=== PATIENT | female | born 1975 | race Caucasian/White ===

== ENCOUNTER 2018-09-05 12:30 | Inpatient (IN) | payer OTHER ==
[2018-09-09] MEDS ORDERED: ceFAZolin 2 GM/50 ML 2 GM/50 ML BAG IV ONE (06:30)
[2018-09-09] MEDS ORDERED: LACTATED RINGERS 1,000 ML IV ONE ×2 (06:38→09:46)
--- NOTE | 2018-09-09 07:18 | ANESTHESIA ---
Pre-Anesthesia VS, & Labs - Diagnosis pelvic pain, abnormal bleeding - Procedure LAVH bilat salpingectomies Vital Signs: Temp Pulse Resp BP Pulse Ox 36.7 C 73 16 117/40 L 100 09/09/18 06:42 09/09/18 06:42 09/09/18 06:42 09/09/18 06:42 09/09/18 06:42 Height 5 ft 7 in Weight (kg) 61.9 kg - NPO >8 hours - Is Patient ?: No Home Medications and Allergies Home Medications: Ambulatory Orders Multivitamin [One Daily Multivitamin] 1 each PO DAILY 08/28/18 Turmeric Root Extract [Turmeric Curcumin] 500 mg PO DAILY 08/28/18 RX: Olopatadine HCl 5 ml OP BID 09/09/18 Multivitamin [One Daily Multivitamin] 1 each PO DAILY 08/28/18 Turmeric Root Extract [Turmeric Curcumin] 500 mg PO DAILY 08/28/18 Olopatadine HCl 5 ml OP BID 09/09/18 Allergies/Adverse Reactions: Allergies Allergy/AdvReac Type Severity Reaction Status Date / Time Penicillins Allergy Hives Verified 09/09/18 07:09 Anes History & Medical History - Anesthetic History Anesthesia Complications: reports: No previous complications Family history of Anesthesia Complications: Denies Family history of Malignant Hyperthermia: Denies - Medical History Cardiovascular: reports: None Pulmonary: reports: None Urinary: reports: Other Musculoskeletal: reports: None Endocrine/Autoimmune: reports: None Skin: reports: None - Surgical History Gynecologic: section Exam General: Alert, Oriented x3, Cooperative Dental: WNL, Other (invisilign base @8,9) Mouth Openin Fingerbreadth Neck Mobility: Normal Mallampati classification: III Thyromental Distance: 4-6 cm Respiratory: Lungs clear, Normal breath sounds, No respiratory distress Cardiovascular: Regular rate Mental/Cognitive Status: Alert/Oriented X3 Cognitive Status: Within normal limits Plan Anesthesia Type: General Consent for Procedure(s) Verified and Reviewed: Yes Code Status: Attempt Resuscitation ASA classification: 1-Healthy patient Is this case an emergency?: No
[2018-09-09 07:31] LABS: HCG UR QUAL NEGATIVE
[2018-09-09] MEDS ORDERED: LIDOCAINE 1%-EPI 1:100000 30 ML MDV ONE (07:32)
[2018-09-09] MEDS ORDERED: BUPIVACAINE 0.25% PF 10 ML VIAL ONE (07:33)
[2018-09-09] MEDS ORDERED: BUPIVACAINE 0.25% PF 30 ML VIAL SUBQ ONE (08:09)
[2018-09-09] MEDS ORDERED: LIDOCAINE MPF 1%-EPI 1:200000 30 ML VIAL SUBQ ONE (08:10)
[2018-09-09] MEDS ORDERED: METHYLENE BLUE 0.5% 50 MG/10 ML AMPULE ONE (09:38)
[2018-09-09] MEDS ORDERED: NEOSTIGMINE 1 MG/1 ML 10 ML MDV IVP ONE (10:59)
[2018-09-09] MEDS ORDERED: ONDANSETRON 4 MG/2 ML VIAL IVP ONE (10:59)
[2018-09-09] MEDS ORDERED: ACETAMINOPHEN 1,000 MG/100 ML 100 ML IV ONE (10:59)
[2018-09-09] MEDS ORDERED: fentaNYL 250 MCG/5 ML VIAL IVP ONE (10:59)
[2018-09-09] MEDS ORDERED: MIDAZOLAM 2 MG/2 ML VIAL IVP ONE (10:59)
[2018-09-09] MEDS ORDERED: PROPOFOL 200 MG/20 ML VIAL IVP ONE (10:59)
[2018-09-09] MEDS ORDERED: GLYCOPYRROLATE 1 MG/5 ML VIAL IVP ONE (10:59)
[2018-09-09] MEDS ORDERED: DEXAMETHASONE 4 MG/ML VIAL IVP ONE (10:59)
[2018-09-09] MEDS ORDERED: ROCURONIUM 50 MG/5 ML VIAL IVP ONE ×2 (10:59→14:15)
[2018-09-09] MEDS ORDERED: ACETAMINOPHEN 500 MG TABLET PO PRN (11:07)
[2018-09-09] MEDS ORDERED: SIMETHICONE CHEW 80 MG TABLET PO PRN (11:07)
[2018-09-09] MEDS ORDERED: MORPHINE 10 MG/ML VIAL IVP PRN (11:07)
[2018-09-09] MEDS ORDERED: ONDANSETRON 4 MG/2 ML VIAL IVP PRN (11:07)
[2018-09-09] MEDS ORDERED: fentaNYL 100 MCG/2 ML VIAL ONE (11:15)
[2018-09-09] MEDS: HYDROmorphone 0.5 MG/0.5 ML SYRINGE ONE ×2 (11:20→11:27)
--- NOTE | 2018-09-09 11:34 | OPERATIVE REPORT ---
Operative Report - General Admit Date: 09/09/18 Procedure Date: 09/09/18 Planned Procedure: Laparoscopic-assisted vaginal hysterectomy with bilateral salpingectomy Pre-Op Diagnosis: Abnormal uterine bleeding, severe dysmenorrhea Procedure Performed: Laparoscopic-assisted vaginal hysterectomy with bilateral salpingectomy, diagnostic cystoscopy Post Op Diagnosis: BRAXTON, pelvic adhesions c/w possible history pelvic inflammatory disease - Procedure Note Primary Surgeon: Dr. Delia Lujan Secondary Surgeon: Dr. Neville Marinelli Anesthesia Provider: CHUCK Zhou Anesthesia Technique: General ET tube Pathology: Uterus, cervix, and bilateral fallopian tubes IV Fluids (mL): 1,700 Estimated Blood Loss (mL): 150 Urine Output (mL): 300 Indications: The patient is a 43-year-old 2 para 2 female here for hysterectomy for definitive surgical management of long-standing abnormal uterine bleeding and severe dysmenorrhea. She has a 10-year history of heavy, painful menses, which have progressively worsened since age 31 years. Her menses last for 5-7 days, of which the first 2 days are extremely heavy, requiring super tampon and pad changes sometimes up to every 30 minutes. She not uncommonly soaks through clothing in the first 2 days. She has a prodrome, which consist of fatigue, depressed mood, and severe cramps. This is accompanied by backache and constipation, which starts between 5-7 days prior to the onset of bleeding. She then has diarrhea upon the onset of menses. Ibuprofen only partly relieves the pain, and she has not noted any significant difference in menstrual flow when she takes ibuprofen. She has taken oral contraceptives and used a progestin IUD in the past, both of which cause mood changes and severe water-weight gain, which then resolved when they were discontinued. The couple has completed her childbearing and are using vasectomy for control. After reviewing all medical and surgical options, the patient desires to proceed with a hysterectomy. The risks, benefits, limitations, alternatives, and expectations were discussed, and the consent was reviewed and signed prior to the date of marcum rgery. Findings: Exam under anesthesia noted a 7-week size uterus that was anteverted. There were no adnexal masses palpable. Laparoscopic findings noted filmy adhesions of the left ovary and fallopian tube into the posterior cul-de-sac and posterior left side of the uterus. There were benign-appearing paratubal cyst on the right side. There were no endometriosis lesions. The ascending colon was adhered to the left flank peritoneum with filmy adhesions. These adhesions were left in situ. The appendix is visualized and appeared normal. The liver edge was visualized and appeared normal. The ovaries appeared normal bilaterally. Laparoscopically, the ureters were visualized bilaterally and noted to peristalse bilaterally. Diagnostic cystoscopy noted reflux of methylene-stained urine readily from the right ureteral orifice. The left ureteral orifice peristalsed multiple times during the cystoscopy, and a slow drainage of urine was noted at one point. However, no clear jet of methylene-dyed urine was noted from the left ureteral orifice. Repeat cystoscopy at the very end of the case again noted the same findings. Complications: None; though left ureteral obstruction could not be fully ruled out cystoscopically, the left ureter did peristalse laparoscopically; and there was no spillage of methylene blue intra-abdominally to suggest transection injury. - Other Other Information/Narrative: Procedure: The patient was taken to the operating room, where general endotracheal anesthesia was administered without difficulty. She was then positioned with her lower extremities in yellow-fin stirrups. Exam under anesthesia was then performed with the findings as noted above. Perineum, vagina, and abdomen were then prepped and draped in sterile fashion, and a hughes catheter was placed. Time out was then performed. Attention was first turned to placement of a uterine manipulator. A sterile bivalve speculum was inserted, and the cervix grasped with a single-toothed tenaculum. The cervix was then dilated until a HUMI uterine manipulator could be placed and balloon inflated. The tenaculum and speculum were then removed. Attention was then turned to the laparoscopy. 0.25% Marcaine, plain, was injected infraumbilically, then a 7-mm vertical skin incision made. A Verrees needle was then inserted through the anterior layers of the abdominal wall with saline drop test suggesting intraperitoneal placement. Carbon dioxide gas insufflation was then performed with appropriate opening pressures noted. Once 2 L of gas was instilled, a 0-degree, 5 mm laparoscope was inserted into a 5 mm trocar and passed through the anterior layers of the abdominal wall using Op tiview technique. The abdomen was visualized, then 2 additional ports placed at the right and left lower quadrants, first instilling local anesthetic then placing 5 mm ports. The patient was placed into Trendelenberg and bowel swept out of the cul-de-sac. The left ovary and tube were adhered into the left posterior uterus and cul-de-sac but easily and pulled superiorly and laterally. The left distal fallopian tube was grasped and pulled anteriorly while the left tubo- ovarian ligament was cross-clamped, cauterized, and cut using the PlasmaKinetic. This incision was then extended medially across the mesosalpinx until the cornual region was reached. The left round ligament was then cross-clamped, cauterized, and cut, then the anterior leaf of the broad ligament undermined, c auterized, and cut starting the bladder flap dissection on the left. The left utero-ovarian pedicle was then cross-clamped, cauterized, and cut, then this incision extended into the peritoneum inferiorly. The left uterine vessels were then skeletonized, cross-clamped, cauterized, and cut. Attention was then turned to the right side, where the dissection was completed in similar fashion. The bladder flap was extended across the midline, completely dissecting the bladder inferiorly. Mild bladder adhesions were noted secondary to her prior c- section. Any bleeding was controlled with cautery. The trocars were left in situ, as well as the majority of the gas, while attention was turned to the vaginal portion of the case. The lower extremities were elevated to high lithotomy, and the uterine manipulator was removed and a sterile weighted speculum placed. The cervix was grasped with a double-toothed tenaculum, then 1% Lidocaine with epinephrine was injected circumferentially for hemostasis. A circumferential incision was then made with cauterization. The posterior cul-de-sac was then entered sharply, and an Auvard speculum placed. At this point, it was reported that the urine appeared pink. This then later cleared, but the decision was made to perform a diagnostic cystoscopy prior to completion of the case. The left, then right, uterosacral ligament was cross-clamped, cut, and suture-ligated with 0 vicryl. These were tagged for later identification. The anterior cul-de-sac was then entered bluntly using a moist sponge and the longwall headgate operator's finger. Two additional pedicles were secured on each side, then the uterus, cervix, and tubes removed vaginally. The peritoneum was then closed with a purse-string suture of 0 vicryl, then the vaginal cuff was irrigated with sterile saline. The vaginal mucosa was then closed with serial figure of eight sutures of 0 vicryl. A sponge stick was placed, and attention turned to a diagnostic cystoscopy. The Hughes catheter balloon was deflated, then the Hughes removed briefly. A 70- degree cystoscope was inserted into the urethra and bladder. There were some non-adhered clots, and the right urteral orifice effluxed methylene-stained urine readily. The left ureteral orifice peristalsed multiple times, and a slow drainage of yellow urine was noted once. Lasix 10 mg IV was given to help with drainage of urine from the left, but this did not result in a ureteral jet on the left. The Hughes was replaced, and the plan was to reattempt cystoscopy later, allowing more time for the methylene dye and Lasix to work. Attention was then returned to laparoscopy to visualize the cuff for bleeding. The lower extremities were replaced into low lithotomy. Gas was instilled again, and the dissection site noted to have some bleeding at the peritoneal edge just above the cuff. This was cauterized then hemostatic. Copious irrigation was performed. The ureters were visualized and peristalsed BILATERALLY, and there was not spillage of methylene dye into the abdominal cavity. At this point the laparoscopic procedure was deemed complete. The gas was allowed to escape, and the trocars removed. The incisions were then closed with 4-0 monocryl in a subcuticular fashion followed by Dermabond. Cystoscopy was again performed, and the findings unchanged. The Hughes catheter was again replaced, then the sponge stick was removed from the vagina. The patient was then replaced supine, awakened, extubated, and transferred to the PACU in stable condition. There were no complications. Though left ureteral obstruction could not be completely ruled out via cystoscopy, there was peristalsis noted bilaterally and no clear evidence of ureteral injury laparoscopically. Sponge, lap, and needle count were correct x 3.
[2018-09-09] MEDS: LACTATED RINGERS 1,000 ML IV SCH ×2 (12:21→22:41)
[2018-09-09] MEDS: KETOROLAC 30 MG/ML VIAL IVP SCH ×3 (12:21→23:48)
[2018-09-09] MEDS ORDERED: SODIUM CHLORIDE FLUSH 0.9% 10 ML SYRINGE ONE ×3 (12:25→17:42)
[2018-09-09] MEDS ORDERED: FUROSEMIDE 40 MG/4 ML VIAL ONE (14:15)
[2018-09-09] MEDS: oxyCODONE 5 MG TABLET PO PRN ×2 (17:42→21:46)
[2018-09-09] MEDS: DOCUSATE SODIUM 100 MG CAPSULE PO SCH (20:15)
[2018-09-10] MEDS: oxyCODONE 5 MG TABLET PO PRN ×4 (02:08→14:54)
[2018-09-10] MEDS: KETOROLAC 30 MG/ML VIAL IVP SCH (05:41)
[2018-09-10 05:50] LABS: BASOPHILS % (AUTO) 0.2 %; EOSINOPHILS % (AUTO) 0.4 %; LYMPHOCYTES # (AUTO) 1.8 10^3/uL (1.5-3.5); LYMPHOCYTES % (AUTO) 24.6 %; MEAN CORPUSCULAR HGB CONC 32.9 g/dL (32.0-36.0); MEAN PLATELET VOLUME 11.2 fL (7.9-10.8); MONOCYTES # (AUTO) 0.6 10^3/uL (0.0-1.0); MONOCYTES % (AUTO) 8.3 %; NEUTROPHILS # (AUTO) 4.7 10^3/uL (1.5-6.6); NEUTROPHILS % (AUTO) 66.5 %; PLT - PLATELET COUNT 78 10^3/uL (130-450); RED BLOOD COUNT 3.22 10^6/uL (4.20-5.40); RED CELL DISTRIBUTION WIDTH 14.4 % (12.0-15.0); WHITE BLOOD COUNT 7.1 x10^3/uL (4.8-10.8)
[2018-09-10 05:52] LABS: CREATININE 0.6 mg/dL (0.4-1.0)
[2018-09-10] MEDS ORDERED: IOVERSOL 320 100 ML VIAL IVP ONE ×2 (06:53→11:19)
--- NOTE | 2018-09-10 08:27 | CT Report ---
Reason: Possible operative L ureteral obstruction Procedure Date: 09/10/2018 Accession Number: [id number] / [id number] Procedure: CT - IVP CPT Code: FULL RESULT: EXAM: CT ABDOMEN AND PELVIS WITHOUT AND WITH CONTRAST (CT IVP) EXAM DATE: 09/10/2018 07:08 AM. CLINICAL HISTORY: Possible operative L ureteral obstruction or injury. No left ureteral jet on cystoscopy. COMPARISONS: None. TECHNIQUE: Routine helical imaging was performed through the kidneys, ureters and bladder in the precontrast, postcontrast/delayed, and late delayed phase. IV Contrast: OPTIRAY 320 100ML. Reconstructions: Coronal and sagittal. In accordance with CT protocol optimization, one or more of the following dose reduction techniques were utilized for this exam: automated exposure control, adjustment of mA and/or KV based on patient size, or use of iterative reconstructive technique. FINDINGS: Lung Bases: There is minimal dependent atelectasis at the bilateral lung bases. Liver: Unremarkable. Gallbladder/Bile Ducts: Unremarkable. Spleen: Unremarkable. Pancreas: Unremarkable. Adrenal Glands: Unremarkable. Kidneys/Bladder: Right Kidney/Ureter: No renal or ureteral stones. No hydronephrosis or hydroureter. No masses. Left Kidney/Ureter: No renal or ureteral stones. No hydronephrosis or hydroureter. The distal left ureter is not well opacified on the postcontrast/delayed or late delayed phases. No masses. Bladder: No stones. No wall thickening or mass. Peritoneal Cavity/Bowel: No adenopathy. No masses or acute inflammatory process. No bowel obstruction or abnormal colonic stool burden. There is a small amount of free air in the abdomen anterior to the liver (series 6 image 16). There is a small amount of free fluid and gas in the pelvis, consistent with the patient's history of recent laparoscopic hysterectomy. Pelvic Organs: There are postsurgical changes of recent laparoscopic hysterectomy. There is a small amount of gas and free fluid low in the pelvis posterior to the bladder. There is no evidence of contrast leak from the urinary collecting system. There are 2 calcified phleboliths low in the pelvis. Vasculature: No aneurysms or other significant abnormality. Bones: No significant abnormality. Other: There are a few small foci of gas in the anterior abdominal wall, likely related to recent laparoscopic surgery. IMPRESSION: 1. No urinary tract masses, stones or obstruction. No evidence of contrast leak from the urinary collecting system on postcontrast/delayed or late delayed images. 2. Postsurgical changes consistent with recent prior laparoscopic hysterectomy. There is a small amount of fluid and gas in the pelvis, and a small amount of pneumoperitoneum anterior to the liver. RADIA
[2018-09-10] MEDS: DOCUSATE SODIUM 100 MG CAPSULE PO SCH (09:00)
[2018-09-10 12:59] VITALS: BP 97/52
--- NOTE | 2018-09-10 15:23 | DISCHARGE SUMMARY ---
"Discharge Summary Admit Date: 09/09/18 Discharge Date: 09/10/18 Discharging Provider: Dr. Delia Lujan Code Status: Attempt Resuscitation Condition at Discharge: Good Discharge Disposition: 01 Home, Self Care - DIAGNOSES Admission Diagnoses: Abnormal uterine bleeding, pelvic pain, dysmenorrhea Discharge Diagnoses with Status of Each Condition: BRAXTON now s/p hysterectomy - HPI History of Present Illness: Please see admission H&P. - CONSULTS | PROCEDURES Consultations: None Procedures: Laparoscopic-assisted vaginal hysterectomy with bilateral salpingectomies, diagnostic cystoscopy - HOSPITAL COURSE Hospital Course: After surgery, the patient was admitted to the PACU, then the johnson in stable c ondition. On the evening of surgery, her hughes catheter was inadvertently removed by the nurse. Voiding trial failed when she voided 100 ml with 200-300 ml residual volume; so the hughes was replaced. She otherwise did well overnight with the only concern being increased pain when poor drainage of her hughes catheter occurred. When adequately drained, her pain was minimal. Hughes was removed again this am. While in-house, she also underwent a CT IVP given intraoperative concern for left ureteral patency following completion of the hysterectomy (she had a brief episode of hematuria then no jet of methylene blue was noted from the left ureteral orifice; however, peristalsis was noted at the orifice cystoscopically and along the ureter laparoscopically). The CT did not note any hydroureter, hydronephrosis, or leakage of contrast into the peritoneum. However, it could not trace contrast to the distal ureter. Plan will be for further ureteral assessment as an outpatient and referral to Urology as needed. She was discharged home on POD #1 once tolerating a regular diet, voiding freely, and controlling pain with oral pain meds. Her VS were nml and stable during her hospital stay. - ALLERGIES Allergies/Adverse Reactions: Allergies Allergy/AdvReac Type Severity Reaction Status Date / Time Penicillins Allergy Hives Verified 09/09/18 07:09 - MEDICATIONS Home Medications: Ambulatory Orders Medication Instructions Recorded Confirmed Multivitamin [One Daily 1 each PO DAILY 08/28/18 09/09/18 Multivitamin] Turmeric Root Extract [Turmeric 500 mg PO DAILY 08/28/18 09/09/18 Curcumin] Olopatadine HCl 5 ml OP BID 09/09/18 09/09/18 Home Medications Other | Comments: Resume home meds. New meds (pt has at home already): Motrin 800 mg po every 8 hrs prn pain Percocet 1 tab po every 4 hrs prn pain Surfak 240 mg po bid prn constipation - PHYSICAL EXAM AT DISCHARGE General Appearance: positive: No acute distress Eyes Bilateral: positive: Normal inspection ENT: positive: ENT inspection nml Neck: positive: Nml inspection Respiratory: positive: No respiratory distress, Breath sounds nml Cardiovascular: positive: Regular rate & rhythm, No murmur, No gallop Abdomen: positive: No distention, Tenderness (Appropriate postop) Skin: positive: Other (LSC incisions x 3 approximating well with no separation, discharge, or erythema. Dermabond adhesive in place. ) Extremities: positive: Full ROM, Nml appearance Neurologic/Psychiatric: positive: Oriented x3 - LABS Result Diagrams: 09/10/18 05:10 09/10/18 05:10 - DIAGNOSTIC IMAGING Diagnostic Imaging Results: Final report reviewed (Postop changes. No evidence of injury to left ureter but unable to track distally (see Hospital Course).) - QUALITY (Female Hip Fx Only) Was patient sent home on osteoporosis medication?: No - FOLLOW UP Follow Up: [id number] at 1300 at [facility] - TIME SPENT Time Spent in Discharge (Minutes): 20"
--- NOTE | 2018-09-10 15:28 | Discharge Plan ---
Discharge Plan Disposition: 01 Home, Self Care Condition: Good Diet: Regular Activity Restrictions: See handout Shower Restrictions: No Driving Restrictions: Yes (OK to drive once pain-free off narcotic pain meds.) No Smoking: If you smoke, Please STOP! Call for help. Follow-up with: Titi Alfaro ARNP [Primary Care Provider] -
== END 2018-09-10 15:55 | disposition home or self-care (01) | DRG 743 ==
LOC: MS2 09-09 06:23
PROVIDERS: ADMIT Obstetrics & Gynecology; ATTEND Obstetrics & Gynecology
PROC: 0UT7FZZ Resection of Bilateral Fallopian Tubes, Via Natural or Artificial Opening With Percutaneous Endoscopic Assistance (ICD-10-PCS; 2018-09-09)
PROC: 0TJB8ZZ Inspection of Bladder, Via Natural or Artificial Opening Endoscopic (ICD-10-PCS; 2018-09-09)
PROC: 0UT9FZZ Resection of Uterus, Via Natural or Artificial Opening With Percutaneous Endoscopic Assistance (ICD-10-PCS; principal; 2018-09-09 07:30)
DX: N93.8 Other specified abnormal uterine and vaginal bleeding (principal); R10.2 Pelvic and perineal pain; N94.6 Dysmenorrhea, unspecified; Z88.0 Allergy status to penicillin; F41.9 Anxiety disorder, unspecified; F32.9 Major depressive disorder, single episode, unspecified; N83.202 Unspecified ovarian cyst, left side
CPT/HCPCS: 36415; 74178; 80048; 81025; 85025; A9270; J0131; J0690; J1170; J3010; J7120; Q9967

== ENCOUNTER 2018-09-07 10:39 | Outpatient (CLI) | payer OTHER | END 2018-09-07 10:40 | disposition home or self-care (01) | LOC: LAB 10:39 | PROVIDERS: ATTEND Obstetrics & Gynecology | DX: Z01.812 Encounter for preprocedural laboratory examination (principal); N93.9 Abnormal uterine and vaginal bleeding, unspecified ==

== ENCOUNTER 2018-09-07 13:50 | Outpatient (CLI) | payer OTHER ==
[2018-09-07 11:23] LABS: BASOPHILS % (AUTO) 0.7 %; EOSINOPHILS # (AUTO) 0.1 10^3/uL (0.0-0.7); HGB - HEMOGLOBIN 11.6 g/dL (12.0-16.0); LYMPHOCYTES # (AUTO) 1.3 10^3/uL (1.5-3.5); MEAN CORPUSCULAR HEMOGLOBIN 27.6 pg (27.0-31.0); MEAN CORPUSCULAR HGB CONC 32.7 g/dL (32.0-36.0); MEAN CORPUSCULAR VOLUME 84.4 fL (81.0-99.0); MONOCYTES # (AUTO) 0.3 10^3/uL (0.0-1.0); MONOCYTES % (AUTO) 6.5 %; NEUTROPHILS # (AUTO) 3.5 10^3/uL (1.5-6.6); NEUTROPHILS % (AUTO) 66.8 %; PLT - PLATELET COUNT 97 10^3/uL (130-450); RED CELL DISTRIBUTION WIDTH 14.5 % (12.0-15.0); WHITE BLOOD COUNT 5.2 x10^3/uL (4.8-10.8)
[2018-09-07 11:35] LABS: PLATELET MORPHOLOGY RARE GIANT PLATELETS (NORMAL)
[2018-09-07 11:44] LABS: BILIRUBIN,URINE NEGATIVE (NEGATIVE); GLUCOSE, URINE (UA) NEGATIVE (NEGATIVE); KETONES,URINE (UA) NEGATIVE (NEGATIVE); LEUKOCYTE ESTERASE, URINE NEGATIVE (NEGATIVE); NITRITE,URINE NEGATIVE (NEGATIVE); OCCULT BLOOD,URINE SMALL (NEGATIVE); PH,URINE 6.5 PH (5.0-7.5); PROTEIN,URINE NEGATIVE (NEGATIVE); UROBILINOGEN,URINE 0.2 (NORMAL) E.U./dL (NORMAL)
[2018-09-07 11:52] LABS: CLARITY,URINE CLEAR (CLEAR)
== END 2018-09-07 23:59 | disposition home or self-care (01) ==
LOC: LAB.R 13:50
PROVIDERS: ATTEND Obstetrics & Gynecology
DX: Z01.812 Encounter for preprocedural laboratory examination (principal); N93.9 Abnormal uterine and vaginal bleeding, unspecified
CPT/HCPCS: 36415; 81003; 85025; 86850; 86900; 86901